=== PATIENT | female | born 1975 ===

== ENCOUNTER 2024-08-22 14:34 | Outpatient (CLI) | payer OTHER | END 2024-08-22 14:41 | disposition home or self-care (01) | LOC: SONOGRAMA 14:34 | PROVIDERS: ATTEND Pathology Anatomic Pathology & Clinical Pathology | DX: D34 Benign neoplasm of thyroid gland (principal); E07.89 Other specified disorders of thyroid; R59.0 Localized enlarged lymph nodes; E04.1 Nontoxic single thyroid nodule ==